=== PATIENT | male | born 1955 | race Hispanic/Latino ===

== ENCOUNTER 2019-02-07 11:32 | Observation (INO) | payer OTHER ==
[~2019-02-07] VITALS: Ht 180.3 cm; Wt 112.3 kg
[~2019-02-07 11:32] MED LIST: ASPI-1197 PO; CARV25TA77 PO; DAPA5TAB PO; LOSA100T58 PO
[2019-02-07] MEDS ORDERED: TETANUS/DIPHTHERIA TOXOID [ADULT] 0.5 ML VIAL IM ONE (12:01)
[2019-02-07 12:17] LABS: BASOPHILS % (AUTO) 0.8 % (0.0-5.0); EOSINOPHILS % (AUTO) 1.7 % (0.0-8.0); LYMPHOCYTES % (AUTO) 10.4 % (21.0-51.0); MEAN CORPUSCULAR HEMOGLOBIN 31.1 pg (27.0-33.0); MEAN CORPUSCULAR HGB CONC 34.6 g/dL (32.0-36.0); MEAN CORPUSCULAR VOLUME 89.9 fL (79-99); MONOCYTES % (AUTO) 5.9 % (3.0-13.0); NEUTROPHILS % (AUTO) 81.2 % (40.0-77.0); PLATELET COUNT (AUTO) 148 K/uL (130-400); RED BLOOD CELL COUNT(AUTO) 4.67 MIL/uL (4.50-6.20); RED CELL DISTRIBUTION WIDTH 13.9 % (11.0-15.5); WHITE BLOOD COUNT (AUTO) 7.7 K/uL (4.8-10.8)
[2019-02-07] MEDS ORDERED: OCTYL 2-CYANOACRYLATE 1 EACH TP ONE (13:35)
[2019-02-07] MEDS ORDERED: ACETAMINOPHEN 325 MG TAB PO PRN ×2 (13:45)
[2019-02-07] MEDS ORDERED: ONDANSETRON HCL 4 MG/2 ML VIAL IV PRN (13:45)
[2019-02-07] MEDS ORDERED: HYDRALAZINE HCL 20 MG/ML VIAL IV PRN (13:45)
[2019-02-07] MEDS ORDERED: LORAZEPAM 2 MG/ML 1 ML VIAL IM PRN (14:00)
[2019-02-07 14:14] LABS: CREATINE KINASE, TOTAL 164 U/L (21-232); MYOGLOBIN 94 ng/mL (10-92); THYROID STIMULATING HORMONE 2.83 uIU/mL (0.36-3.74); TROPONIN I < 0.04 ng/mL (0.00-0.06)
[2019-02-07 14:50] LABS: CREATINE KINASE, TOTAL 150 U/L (21-232); MYOGLOBIN 75 ng/mL (10-92); TROPONIN I < 0.04 ng/mL (0.00-0.06)
--- NOTE | 2019-02-07 14:50 | NUR ---
REPORT RECEIVED FROM TE BUSTAMANTE (ED). PATIENT ADMITTED UNDER DR. [facility]SI[facility] SERVICES FOR SYNCOPE, FALLS, AND SCALP LACERATION. PATIENT S/P FALL AT HOME AFTER RECEIVING DENTAL CLEANING. PATIENT STATES FELT NAUSEATED AND DOES NOT REMEMBER FALLING OR HITTING HIMSELF. DERMABOND NOTED TO SCALP LACERATION BY ER PHYSICIAN. BRUISING NOTED TO LEFT OCCIPITAL AREA. SOC PERFORMED IN ER. DR. HEARD TO FOLLOW UP WITH PATIENT IN AM FOR SEIZURE MANAGEMENT. PATIENT STABLE AT THIS TIME.
[2019-02-07 15:15] VITALS: BP 141/78
[2019-02-07 19:59] VITALS: BP 155/88
[2019-02-07] MEDS ORDERED: FAMOTIDINE/PF 20 MG/2 ML VIAL IV SCH (21:00)
[2019-02-08] VITALS: BP 163/93
== END 2019-02-08 00:20 | disposition home or self-care (01) ==
LOC: EDH 11:32 → EDHIP 13:40 → 3DH 15:11
PROVIDERS: ADMIT Internal Medicine; ATTEND Internal Medicine
DX: R55 Syncope and collapse (principal); E11.9 Type 2 diabetes mellitus without complications; E78.2 Mixed hyperlipidemia; I10 Essential (primary) hypertension; M17.11 Unilateral primary osteoarthritis, right knee; S01.81XA Laceration without foreign body of other part of head, initial encounter; W19.XXXA Unspecified fall, initial encounter; Y93.89 Activity, other specified; Y92.89 Other specified places as the place of occurrence of the external cause; Y99.8 Other external cause status; Z80.3 Family history of malignant neoplasm of breast; Z83.3 Family history of diabetes mellitus; Z82.49 Family history of ischemic heart disease and other diseases of the circulatory system; Z23 Encounter for immunization
CPT/HCPCS: 12052; 36415; 70450; 73030; 80048; 82550 ×2; 82948; 83874 ×2; 84443; 84484 ×2; 85025; 90471; 90714; 93005 ×2; 93306; 93880; 99284; G0378 ×11

== ENCOUNTER → 2019-02-10 | Outpatient (CLI) | payer OTHER | END | disposition home or self-care (01) | LOC: RAH 15:28 | PROVIDERS: ATTEND Internal Medicine | DX: Z01.818 Encounter for other preprocedural examination (principal); M25.561 Pain in right knee | CPT/HCPCS: 71046 ==